=== PATIENT | female | born 1950 | race Two or more races ===

== ENCOUNTER 2019-12-30 07:16 | Outpatient (CLI) | payer OTHER | END 2019-12-30 07:24 | disposition home or self-care (01) | LOC: LAB 07:16 | PROVIDERS: ATTEND Internal Medicine Sports Medicine | DX: C73 Malignant neoplasm of thyroid gland (principal); E89.0 Postprocedural hypothyroidism ==

== ENCOUNTER 2020-01-03 11:17 | Outpatient (CLI) | payer OTHER | END 2020-01-03 11:27 | disposition home or self-care (01) | LOC: NUCLEAR 11:17 | PROVIDERS: ATTEND Internal Medicine Sports Medicine | DX: C73 Malignant neoplasm of thyroid gland (principal) | CPT/HCPCS: 78018; 78020; A9531 ==